=== PATIENT | female | born 1975 | race Caucasian/White ===

== ENCOUNTER 2018-12-29 01:14 | Emergency (ER) | payer SELFPAY ==
[~2018-12-29] VITALS: Wt 81.2 kg
[2018-12-29 01:18] VITALS: BP 145/80; PULSE 64; RESP 18
== END 2018-12-29 04:03 | disposition left against medical advice (07) ==
LOC: E/R 01:14
DX: Z53.21 Procedure and treatment not carried out due to patient leaving prior to being seen by health care provider (principal)